=== PATIENT | female | born 1940 | race Caucasian/White ===

== ENCOUNTER → 2016-07-23 09:14 | Outpatient (CLI) | payer MEDICARE, BC ==
[2015-07-26 09:23] VITALS: BMI 27.4
[~2016-07-23 09:14] MED LIST: BAYER CHEWABLE81 MG PO; LEVOXYL75 MCG PO; PAXIL10 MG PO; PLAVIX75 MG PO; PROTONIX40 MG PO; VITAMIN D31000 UNIT PO
== END | disposition home or self-care (01) ==
LOC: D.MRI 07-22 10:00
DX: M25.571 Pain in right ankle and joints of right foot (principal); M79.671 Pain in right foot; W19.XXXA Unspecified fall, initial encounter

== ENCOUNTER 2017-03-19 05:20 | Inpatient (IN) | payer MEDICARE, BC ==
[2017-03-19 06:02] LABS: BASOPHILS 0.2 % (0-2); EOSINOPHILS 0.7 % (0-7); IMMATURE GRANULOCYTES 0.2 % (0-5); LYMPHOCYTES 6.6 % (15-50); MCH 31.8 pg (26.0-34.0); MCHC 32.4 g/dL (31.0-37.0); MCV 98.1 fL (80.0-100.0); MEAN PLATELET VOLUME 9.2 fL (7.4-10.4); MONOCYTES 9.7 % (2-11); NEUTROPHILS 82.6 % (40-80); PLATELET COUNT 181 10x3/uL (130-400); RBC 3.77 10x6/uL (4.00-5.40); RDW 14.2 % (11.5-14.5); WBC 11.2 10x3/uL (4.8-10.8)
[2017-03-19 06:14] LABS: ALBUMIN 3.6 g/dL (3.4-5.0); ALKALINE PHOSPHATASE 83 U/L (46-116); ALT (SGPT) 17 U/L (10-68); BILIRUBIN - TOTAL 0.42 mg/dL (0.2-1.3); CALC OSMOLALITY 282 mosm/kg (275-300); CALCIUM 8.5 mg/dL (8.5-10.1); CARBON DIOXIDE 24.7 mmol/L (21.0-32.0); CHLORIDE - SERUM 106 mmol/L (98-107); GLUCOSE 105 mg/dL (74-106); POTASSIUM - SERUM 3.7 mmol/L (3.5-5.1); PROTEIN - SERUM 6.9 g/dL (6.4-8.2); SODIUM 142 mmol/L (136-145); UREA NITROGEN 13 mg/dL (7-18); eGFR NON AFRICAN AMERICAN 57 mL/min (90-120)
[2017-03-19 06:26] LABS: CHOL - HDL RATIO 4.5 ratio (2.3-4.1); CHOLESTEROL, TOTAL 197 mg/dL (0-200); CKMB 0.3 U/L (0.0-3.6); CREATINE KINASE 73 UL (21-215); HDL CHOLESTEROL 44 mg/dL (32-96); LDL CHOLESTEROL 134 mg/dL (0-100); MAGNESIUM - SERUM 2.1 mg/dL (1.8-2.4); TRIGLYCERIDE 97 mg/dL (30-200)
[2017-03-19 06:29] LABS: TROPONIN-I < 0.017 ng/mL (0.000-0.060)
--- NOTE | 2017-03-19 08:21 | NUR ---
TRANSFER FROM ER. FAMILY AT BS. CORRINAINTED TO ROOM. CALL LIGHT IN REACH. WILL CONT. PLAN OF CARE.
[2017-03-19] MEDS ORDERED: PRESERVISION AR1 CAP PO (09:15)
[2017-03-19 09:21] VITALS: BP 118/56; BMI 28.2
[2017-03-19 12:00] VITALS: BP 98/53
[2017-03-19 12:16] VITALS: BMI 28.2
[2017-03-19 13:32] LABS: CKMB 0.1 U/L (0.0-3.6); CREATINE KINASE 72 UL (21-215)
[2017-03-19 13:34] LABS: TROPONIN-I < 0.017 ng/mL (0.000-0.060)
[2017-03-19 17:54] VITALS: BP 99/44
--- NOTE | 2017-03-19 19:00 | NUR ---
RECEIVED REPORT AND ASSUMED PT CARE FROM DAY SHIFT NURSE @ THIS TIME.
[2017-03-19 19:22] LABS: CREATINE KINASE 53 UL (21-215)
[2017-03-19 19:23] LABS: TROPONIN-I < 0.017 ng/mL (0.000-0.060)
--- NOTE | 2017-03-19 19:42 | NUR ---
PT C/O NAUSEA. NOTHING ORDERED FOR NAUSEA. CALL TO DR PALACIOS, DR VAUGHAN TRACK ANNOUNCER AND RETURNS CALL. NEW ORDER RECEIVED FOR ZOFRAN 4 MG IV Q4H PRN NAUSEA. PT AND HER DAUGHTER UPDATED ON POC
[2017-03-19 20:00] VITALS: BP 94/62
[2017-03-19 20:52] LABS: APPEARANCE CLEAR (CLEAR); BILIRUBIN NEGATIVE (NEGATIVE); COLOR DK YELLOW (YELLOW); GLUCOSE NEGATIVE (NEGATIVE); KETONE NEGATIVE (NEGATIVE); NITRITE NEGATIVE (NEGATIVE); PROTEIN NEGATIVE (NEGATIVE); SPECIFIC GRAVITY 1.015 (1.005-1.020); UROBILINOGEN NORMAL (NORMAL)
[2017-03-19 20:53] LABS: WHITE CELLS - URINE 25-50 /hpf (0-5)
[2017-03-19 20:54] LABS: BACTERIA FEW /hpf (NONE SEEN); EPITHELIAL CELLS 0-5 /hpf (0-5); RED CELLS - URINE RARE /hpf (0-5)
--- NOTE | 2017-03-19 22:40 | NUR ---
PT RESTING WELL WITHOUT C/O OR DISTRESS NOTED. NO NEEDS VOICED. CALL LIGHT WITHIN REACH. WILL CONT TO MONITOR.
--- NOTE | 2017-03-19 23:40 | NUR ---
PT HAS APPROX 30 CC GREEN EMESIS OUT. STATES STILL FEELING NAUSEATED. ZOFRAN 4 MG IV GIVEN @ THIS TIME. WILL CONT TO MONITOR.
[2017-03-20 00:30] LABS: CREATINE KINASE 53 UL (21-215); TROPONIN-I < 0.017 ng/mL (0.000-0.060)
--- NOTE | 2017-03-20 02:10 | NUR ---
DENIES ANY FURTHER C/O NAUSEA. EYES CLOSED AND RESP EVEN UNLABORED. DAUGHTER AT THE BEDSIDE. WILL CONT TO MONITOR.
[2017-03-20 04:00] VITALS: BP 124/66
[2017-03-20 05:30] LABS: BASOPHILS 0.1 % (0-2); EOSINOPHILS 0.1 % (0-7); HEMATOCRIT 36.1 % (36.0-48.0); HEMOGLOBIN 11.9 g/dL (12-16); IMMATURE GRANULOCYTES 0.6 % (0-5); MCH 32.5 pg (26.0-34.0); MCV 98.6 fL (80.0-100.0); MEAN PLATELET VOLUME 10.3 fL (7.4-10.4); MONOCYTES 7.8 % (2-11); NEUTROPHILS 82.4 % (40-80); PLATELET COUNT 187 10x3/uL (130-400); RBC 3.66 10x6/uL (4.00-5.40); RDW 14.3 % (11.5-14.5); WBC 13.7 10x3/uL (4.8-10.8)
[2017-03-20 06:41] LABS: ANION GAP 11.3 mmol/L (8-16); CALCIUM 8.5 mg/dL (8.5-10.1); CARBON DIOXIDE 26.7 mmol/L (21.0-32.0); CREATININE - SERUM 1.1 mg/dL (0.6-1.3)
--- NOTE | 2017-03-20 07:15 | NUR ---
RECEIVED PT IN BED AAOX4 RESP UNLABORED DENIES ANY NEEDS OR DISCOMFORT
[2017-03-20 08:10] VITALS: BP 103/45
[2017-03-20 12:32] VITALS: BP 102/49
[2017-03-20 15:39] VITALS: BP 97/47
--- NOTE | 2017-03-20 19:55 | NUR ---
INITAIL ROUNDS COMPETEDA T 0 HRS. PT DENIED ANY DISCOOFRT. ASSESSMENT COMPLETED AT 5 HRS. SR PER CM HR 71. IV TO LAC SL. LUNGS CTA, PT DENIED ANY DISCOMFORT. FAMILY AT BEDSIDE. WILL CONTINUE TO MONITOR.
[2017-03-20 20:00] VITALS: BP 110/58
[2017-03-20 20:32] VITALS: BP 101/55
--- NOTE | 2017-03-20 23:05 | NUR ---
PT RESTING WITH EYES CLOSED. RESP EVEN AND REGULAR. SR UP X2, CALL LIGHT WITHIN REACH.
--- NOTE | 2017-03-21 00:50 | NUR ---
PT AWAKE; DENIES ANY DISCOMFORT. WILL CONTINUE TO MONITOR.
[2017-03-21 01:18] VITALS: BP 102/48
--- NOTE | 2017-03-21 02:17 | NUR ---
PT RESTING WITH EYES CLOSED. RESP EVEN AND AND REGULAR. SR UP X2, CALL LIGHT WITHIN REACH.
--- NOTE | 2017-03-21 04:22 | NUR ---
PT AWAKE; DENIES ANY DISCOMFORT. WILL CONTINUE TO MONITOR.
[2017-03-21 05:55] VITALS: BP 102/54
--- NOTE | 2017-03-21 06:17 | NUR ---
VSS THROUGHOUT NIGHT. SR PER CM. PT DENIED ANY DISCOMFORT. NEEDS MET; WILL CONTINUE TO MONITOR.
[2017-03-21 08:00] VITALS: BP 102/52
--- NOTE | 2017-03-21 09:33 | NUR ---
MORNING MED GIVEN. PATIENT WITH C/O 7-8 OUT 10 CRAMPING ABD PAIN. LAST BM THE DAY BEFORE ADMIT ON 03/18. PT DENIES NAUSEA. ALSO WITH C/O BACK PAIN 11/04 WELL. ADVISED PT AGAINST TAKING A NARCOTIC IF SHE IS CONSTIPATED UNLESS THE PAIN IS SEVERE, PT AGREES. WILL DISCUSS WITH PT'S PRIMARY NURSE TO OBTAIN ORDER FOR BOWEL MEDS AND PLAIN TYLENOL. WILL CONT TO MONITOR.
[2017-03-21 12:00] VITALS: BP 116/56
[2017-03-21 16:00] VITALS: BP 117/50
--- NOTE | 2017-03-21 17:30 | NUR ---
IV SITE TO LAC LEAKING DCD WITH IV CATHETER INTACT SITE NOTED WITHOUT REDNESS OR EDEMA RESITED SALINE LOCK TO LFA WITH 22 GA IV CATH X 1 STICK USING ASEPTIC TECHNIQUE
--- NOTE | 2017-03-21 19:27 | NUR ---
INITIAL ROUNDS COMPETED. PT DENIES ANY DISCOMFORT. WILL CONTINUE TOMONITOR.
[2017-03-21 20:00] VITALS: BP 112/47
--- NOTE | 2017-03-21 22:20 | NUR ---
PRUNE JUICE COCKTAIL GIVEN FOR C/O CONSTIPATION. SHAYNE CONTINUE TO MONITOR.
--- NOTE | 2017-03-21 23:56 | NUR ---
PT RESTING WITH EYES CLOSED. RESP EVEN AND REGULAR. SR UP X2,CALL LIGHT WITHIN REACH.
--- NOTE | 2017-03-22 02:00 | NUR ---
PT RESTING WITH EYES CLOSED. RESP EVEN AND REGULAR. SR UP X2, CALL LIGHT WITHIN REACH.
[2017-03-22 04:00] VITALS: BP 99/44
--- NOTE | 2017-03-22 04:41 | NUR ---
PT RESTING WITH EYES CLOSED. RESP EVEN AND REGULAR. SR UP X2, CALL LIGHT WITHIN REACH.
--- NOTE | 2017-03-22 06:29 | NUR ---
VSS THROUGHOUT NIGHT. SR PER CM. PT STATED PRUNE JUICE COCKTAIL GACE HER AN UPSET STOMACH. WILL CONTINUE TO MONITOR.
--- NOTE | 2017-03-22 07:55 | NUR ---
UP IN CHAIR WITH CALL LIGHT IN REACH. WILL MONITOR NEEDS.
[2017-03-22 08:00] VITALS: BP 111/65
--- NOTE | 2017-03-22 08:03 | NUR ---
ASSESSMENT DONE. DENIES NEEDS.
[2017-03-22 12:00] VITALS: BP 113/61
[2017-03-22 16:00] VITALS: BP 116/65
--- NOTE | 2017-03-22 16:54 | NUR ---
WITHOUT CHANGES OR DISTRESS NOTED AT THIS TIME. DENIES NEEDS.
[2017-03-22 19:00] VITALS: BP 108/57
--- NOTE | 2017-03-22 21:55 | NUR ---
BEDTIME MEDS GIVEN. RESTING COMFORTABLY. NO COMPLAINTS AT THIS TIME.
[2017-03-23] VITALS: BP 109/55
[2017-03-23 04:32] VITALS: BP 122/61
--- NOTE | 2017-03-23 07:17 | HP ---
PATIENT: BEATRIZ DELGADILLO MEDICAL RECORD: [id number] ACCOUNT: [id number] LOCATION:[address] : 39 ADMISSION DATE: 03/21/17 HISTORY AND PHYSICAL EXAMINATION REASON FOR ADMISSION: Chest pain and shortness of breath. HISTORY OF PRESENT ILLNESS: The patient is a 77-year-old female with history of CAD and PTCA by Dr. Powell 3 years ago. She has undergone some right ankle and foot surgeries, fairly recently has undergone physical therapy. She noticed with walking up hills the last month she was getting some tightness in her chest and it resolved fairly quickly. Over the last couple of weeks, she has noted at rest chest discomfort that would come and go and occasionally radiated into her left arm and wrist. She was awakened at approximately 4:30 a.m. this morning with similar symptoms became more short of breath and just felt nauseated. For that reason, she came to the Emergency Room. She denies any recent dyspepsia, fever, change in stools or blood per rectum. She denies recent fever. Currently a nonsmoker, but had smoked in the past. PAST MEDICAL HISTORY: Osteoarthritis, CAD, diverticulitis, diverticulosis, dyslipidemia, essential hypertension, hypothyroidism, history of lumbar disc disease, IBS, migraine headaches, spinal stenosis, hammer toe, right foot with tendon injury, remote TIA, anxiety, sinus bradycardia, GERD, and hypothyroidism. ALLERGIES: BIAXIN, CIPRO, CODEINE, MOBIC, PRAVASTATIN, SIMVASTATIN, VIMOVO, AND ZETIA. HOME MEDICATIONS: Protonix 40 mg p.o. daily, Xanax 0.25 mg b.i.d. p.r.n. anxiety, Voltaren topical gel right foot t.i.d., Synthroid 75 mcg p.o. q.a.m., vitamin D 10,000 units p.o. weekly, ICaps Plus b.i.d., aspirin 81 mg daily. PAST SURGICAL HISTORY: He has had cataracts both eyes, cholecystectomy, knee arthroscopy, appendectomy, TAHBSO, recent right hammertoe with calcaneal shaving and tendon repair, tonsillectomy and adenoidectomy. FAMILY HISTORY: Parents are . One had cancer of unknown type and one had neurological disorder. Sibling with CAD, diabetes and cancer. Daughter with history of breast cancer. SOCIAL HISTORY: She is . Her several years ago from lung cancer. She is a remote smoker, nondrinker. Daughter is living in [place] and is very involved in her care. REVIEW OF SYSTEMS: GENERAL: She is chronically fatigued, more so recently. No recent fever. HEENT: No recent visual change, sinus congestion, or sore throat. RESPIRATORY: Mild exertional dyspnea associated with chest tightness. She had shortness of breath awakening her this morning at 4:30 a.m. She also had some cough with some clear sputum that had little blood-tinge she states. CARDIAC: She has had exertional tightness in her chest recently that resolved with rest. Occasional radiation to the left arm and elbow and wrist. She was awakened this morning, see HPI. Denies any recent edema or uncontrolled hypertension. GASTROINTESTINAL: No nausea, vomiting, change in stools or blood per rectum. GENITOURINARY: No incontinence. HISTORY AND PHYSICAL [id number] BEATRIZ DELGADILLO GYNECOLOGIC: No vaginal bleeding. ENDOCRINE: Denies polyuria, polydipsia, heat or cold intolerance. NEUROLOGIC: Remote history of TIA. No recent memory loss, motor or sensory deficits. MUSCULOSKELETAL: Has trouble with pain in her right ankle and her recovery from her surgery, morning stiffness. PSYCHIATRIC: Denies depressed mood. INTEGUMENT: No rash or itching. PHYSICAL EXAMINATION: GENERAL: The patient is currently alert and oriented and pain-free in the ED. VITAL SIGNS: Temperature is 97.9 Fahrenheit orally, pulse 85 and regular, respirations were 18 and unlabored, blood pressure 135/64, sats 96% on room air. HEENT: Normocephalic. Eyes show clear sclera with cataract lens implants both eyes. NECK: No bruits appreciated. No JVD. CHEST: Fine crackles in bilateral bases. No wheezes. HEART: Regular rate and rhythm without murmur. BREASTS: Symmetrical. ABDOMEN: Soft, nontender, mildly obese. PELVIC: Deferred. EXTREMITIES: She has postoperative incision in the right medial lower tibia from tendon transposition. Her right ankle shows limited flexion and extension. She has no peripheral edema. SKIN: Unremarkable. NEUROLOGICAL: Oriented to person, place, and time. Cranial nerves grossly intact. Gait was not tested. LABORATORY DATA: EKG shows right bundle branch block which is old. White count is 11,000, H&H of 12 and 37.0, with a left shift with neutrophils of 82.6. Sodium 142, potassium 3.7, BUN 13, creatinine 1.0, glucose 105. Liver functions are normal. Cardiac enzymes initially are negative. Cholesterol is 197 with an LDL of 134, HDL of 44. Chest x-ray shows mild interstitial edema. ASSESSMENT: 1. Symptoms compatible with exertional and rest angina. 2. Mild pulmonary edema. 3. History of known coronary artery disease, single vessel. 4. Hypertension. 5. Hyperlipidemia. 6. Hypothyroidism. 7. Osteoarthritis. 8. Gastroesophageal reflux disease. PLAN: The patient will be admitted. Cardiology evaluation, serial cardiac enzymes, Lasix for IV diuresis. Further workup pending clinical course. TRANSINT:[id number] Voice Confirmation ID: [id number] DOCUMENT ID: [id number] HISTORY AND PHYSICAL [id number] BEATRIZ DELGADILLO TIMOTHY MD at 0717 CC: [id number] DICTATION DATE: 03/19/17727 HEAD NURSE: 03/19/17912 ADM IN [id number] [place] [address]
[2017-03-23 08:00] VITALS: BP 126/47
--- NOTE | 2017-03-23 08:03 | NUR ---
ASSESSMENT DONE. DENIES NEEDS.
--- NOTE | 2017-03-23 09:56 | NUR ---
UP TO CHAIR. RESP UL ON . CALL LIGHT REACH. WILL CONT. PLAN OF CARE.
[2017-03-23 14:47] LABS: BASOPHILS 0.6 % (0-2); EOSINOPHILS 4.5 % (0-7); HEMATOCRIT 36.9 % (36.0-48.0); HEMOGLOBIN 11.8 g/dL (12-16); IMMATURE GRANULOCYTES 0.5 % (0-5); LYMPHOCYTES 28.5 % (15-50); MCH 32.1 pg (26.0-34.0); MCV 100.3 fL (80.0-100.0); MEAN PLATELET VOLUME 9.8 fL (7.4-10.4); MONOCYTES 11.6 % (2-11); NEUTROPHILS 54.3 % (40-80); PLATELET COUNT 212 10x3/uL (130-400); RBC 3.68 10x6/uL (4.00-5.40); RDW 14.2 % (11.5-14.5); WBC 6.3 10x3/uL (4.8-10.8)
[2017-03-23 15:06] LABS: ANION GAP 8.8 mmol/L (8-16); CARBON DIOXIDE 30.7 mmol/L (21.0-32.0); POTASSIUM - SERUM 4.5 mmol/L (3.5-5.1)
[2017-03-23 16:00] VITALS: BP 104/78
--- NOTE | 2017-03-23 18:06 | NUR ---
WITHOUT CHANGES OR DISTRESS NOTED AT THIS TIME. DENIES NEEDS.
[2017-03-23 21:26] VITALS: BP 133/73
--- NOTE | 2017-03-23 21:53 | NUR ---
PT AWAKE, ALERT, ORIENTED, STATES SHE IS HAVING SOME URINARY DISCOMFORT AND DENIES HAVING ANY HX OF UTI'S. I EXPLAINED THE NEWLY ORDERED ROCEPHIN SHOULD HELP IF THERE IS A UTI DEVELOPING. RED POPSICLE GIVEN FOR HS SNACK, NO OTHER NEEDS. CONTINUE TO MONITOR CLOSELY. BED LOW, CALL LIGHT IN REACH, SIDE RAILS X 2, HOB 20 DEGREES.
--- NOTE | 2017-03-24 00:44 | NUR ---
PT RESTING COMFORTABLY, DENIES ANY NEEDS. CONTINUE TO MONITOR CLOSELY. BED LOW, CALL LIGHT IN REACH, SIDE RAILS X 2, HOB 20 DEGREES.
--- NOTE | 2017-03-24 08:10 | NUR ---
ASSESSMENBT DONE. DENIES NEEDS.
[2017-03-24 08:16] VITALS: BP 140/73
--- NOTE | 2017-03-24 09:29 | NUR ---
RESP UL ON . NO NEEDS VOICED. CALL LIGHT IN REACH. WILL CONT. PLAN OF CARE.
[2017-03-24 11:58] VITALS: BP 117/72
[2017-03-24 17:37] VITALS: BP 141/75
--- NOTE | 2017-03-24 17:46 | NUR ---
WITHOUT CHANGES OR DISTRESS NOTED AT THIS TIME.
--- NOTE | 2017-03-24 19:45 | NUR ---
RESUMED CARE OF PT, LYING IN BED RESPIRATIONS EVEN AND UNLABORED ON 2LPM VIA NC. DAUGHTER AT BEDSIDE, PLAN OF CARE DISCUSSED. 76 SR ON TELEMETRY. RIGHT AND LEFT FOREARM SALINE LOCKED. NO NEEDS AT THIS TIME. WILL CONTINUE TO MONITOR. SEE NURSE ASSESSMENT.
[2017-03-24 20:48] VITALS: BP 143/73
[2017-03-25] VITALS: BP 109/59
--- NOTE | 2017-03-25 00:54 | NUR ---
MANAGER ATHLETICS AT BEDSIDE TO OBTAIN VITALS, CALL LIGHT IN REACH. WILL CONTINUE WITH PLAN OF CARE.
--- NOTE | 2017-03-25 06:54 | NUR ---
NO CHANGES FROM PREVIOUS ASSESSMENT, CALL LIGHT IN REACH. WILL CONTINUE TO MONITOR.
--- NOTE | 2017-03-25 07:50 | NUR ---
RECEIVED PT IN CHAIR AAOX4 RESP UNLABORED DENIES ANY NEEDS OR DISCOMFORT NAD NOTED
[2017-03-25 08:06] VITALS: BP 118/58
[2017-03-25 12:23] VITALS: BP 111/52
[2017-03-25 20:00] VITALS: BP 118/61
[2017-03-26] VITALS: BP 106/58
[2017-03-26 04:00] VITALS: BP 98/56
[2017-03-26 07:38] VITALS: BP 105/62
--- NOTE | 2017-03-26 11:09 | NUR ---
Patient Name: BEATRIZ DELGADILLO Admission Status: ER Accout number: [id number] Admission Date: 03-21-2017 : 1940 Admission Diagnosis:CHEST PAIN, UNSPECIFIED Attending: BRENDON PALACIOS Current LOS: 5 Anticipated DC Date: 04-02-2017 Planned Disposition: Home Primary Insurance: MEDICARE A & B Discharge Planning Comments: CM MET WITH PATIENT TO DISCUSS DISCHARGE NEEDS. PATIENT WILL RETURN HOME TO HER HOUSE AT [address] [place] [address]. (P.O. BOX LISTED ON FACESHEET). HER DAUGHTER AND GRANDSON HELP HER OUT AND BRING HER MEALS. SHE ASKED ABOUT [employer]. EXPAINED I COULD CHECK ON IT, BUT DID NOT KNOW IF THEY SERVICED THAT AREA. I WOULD LET HER KNOW. SHE SAID SHE IS INDEPENDENT IN HER CARE. STATED THAT WHEN SHE HAD THE BOOT ON HER FOOT, SHE WAS SLOWER, BUT GOT IT DONE. SHE HAS SOME EQUIPMENT AT HOME, BUT SAID SHE DOES NOT USE IT. SHE STATED HER DAUGHTER WOULD BE HER TO PICK HER UP SHORTLY. DENIES NEEDS FOR ASSISTANCE OUTSIDE THE MEALS. WILL CONTINUE TO CHECK ON HER AND BE AVAILABLE UNTIL TIME OF DISCHARGE. Clothes Marker: Lauren Aranda Appended by Lauren Aranda on 03/26/2017 15:24 CDT: SPOKE WITH HEXIO AT [employer] ([phone]) SHE STATED THEY DO NOT SERVE THE [place] AREA, BUT STATED THAT [employer] DID. SHE GAVE ME THE NUMBER [phone]. A CALL WAS PLACED HERE, THE CURRICULUM COUNSELOR STATED THEY LEFT AT 1200 ON [place]IDAYS AND RECOMMENDED THEY BE CALLED BACK ON WEDNESDAY. THIS WAS EXPLAINED TO THE PATIENT AND THE INFORMATION WAS GIVEN TO HER. SHE SAID THAT SHE WOULD CALL ON WEDNESDAY. Is the patient Alert and Oriented? Yes * How many steps to enter\exit or inside your home? 2, RAILS * PCP DR BRENDON PALACIOS * Pharmacy [facility] * Preadmission Environment Home with Family * ADLs Independent * Equipment Cane Shower Chair Walker * List name and contact numbers for known caregivers / representatives who currently or will assist patient after discharge: SOPHIE JACK, DAUGHTER [phone] * Community resources currently utilized None * Additional services required to return to the preadmission environment? No * Can the patient safely return to the preadmission environment? Yes * Has this patient been hospitalized within the prior 30 days at any hospital? No
--- NOTE | 2017-03-26 11:14 | NUR ---
Nutrition Monitoring and Eval: Pt is eating 88% meal avg on an AHA diet. +BM 03/26/17. Labs and meds reviewed. Pt continues at low nutritional risk. RD following.
[2017-03-26 11:51] VITALS: BP 114/64
[2017-03-26] MEDS ORDERED: OMNICEF300 MG PO (13:05)
[2017-03-26] MEDS ORDERED: Levaquin PO (13:05)
[2017-03-26] MEDS ORDERED: NYSTATIN ORAL SU5 ML PO (13:05)
[2017-03-26] MEDS ORDERED: VOLTAREN100 GM TOPICAL (13:06)
[2017-03-26] MEDS ORDERED: MUCINEX DM ER1 EAC1 PO (13:06)
[2017-03-26] MEDS ORDERED: FLUTICASONE PRO16 GM NASAL (13:07)
[2017-03-26] MEDS ORDERED: FLORAJEN3 CAPS460 MG PO (13:07)
--- NOTE | 2017-03-26 13:42 | NUR ---
AWAITING DISCHARGE. NO CURRENT NEEDS.
--- NOTE | 2017-03-26 14:44 | NUR ---
IV DC'D TIMES 2. CATH TIPS FULLY INTACT. REVIEWED DC INSTRUCTIOS WITH PT AND FAMILY. NO FURTHER NEEDS OR C/O. ALL PERSONAL BELONGINGS WITH FAMILY. PT DC'D HOME.
[2017-03-27 20:07] LABS: ANGIOTENSIN CONVERTING ENZYME 33 U/L (14-82)
[2017-03-29 20:08] LABS: FUNGAL - ASP FLAVUS Negative (Neg:<1:1); FUNGAL - ASP NIGER Negative (Neg:<1:1); FUNGAL - ASPER FUMIGATUS Negative (Neg:<1:1)
--- NOTE | 2017-04-08 12:47 | EC ---
PATIENT:BEATRIZ DELGADILLO DATE OF SERVICE: 03/21/17 SEX: F MEDICAL RECORD: [id number] DATE OF : [birth year] LOCATION:D.M2 D.212 AGE OF PATIENT: 77 ADMISSION DATE: 03/21/17 REFERRING PHYSICIAN: INTERPRETING PHYSICIAN: MELYSSA LOMAX MD ECHOCARDIOGRAM REPORT ECHO CHARGES 4 ECHO COMPLETE CLINICAL DIAGNOSIS: CHF ECHOCARDIOGRAPHIC MEASUREMENTS (adult normal given) AC root (d.<3.7cm) 3.3 cm LV Septum d (<1.2 cm> 1.5 cm Valve Excursion 2.1 cm LV Septum (systole) 2.1 cm Left Atria (s.<4.0cm> 3.0 cm LVPW d(<1.2cm) 1.3 cm RV (d.<2.3cm) 2.8 cm LVPW (sytole) 1.9 cm LV diastole(<5.6CM) 4.5 cm MV E-F(>70mm/sec) cm LV systole 2.5 cm LVOT Diameter 1.9 cm MV exc.(>10mm) cm Est.ejection fraction (50-75%) % Pericardial Effusion N DOPPLER: LVIT cm/sec A 81.0 cm/sec E 54.0 cm/sec LA cm/sec RVSP 37.0 mmHg LVOT 120 cm/sec AOP1/2T m/s Asc. Ao 138 cm/sec RVOT 64.0 cm/sec RA cm/sec PA 95.0 cm/sec AV Gradient Peak 7.7 mmHg AV Mean 3.5 mmHg AV Area 2.0 cm MV Gradient Peak 3.7 mmHg MV Mean 1.1 mmHg MV Area cm COMMENTS: Inflated Ball Molder: Vivian MONTGOMERYOE Supervisor Statement Clerks: 4 Dr. Lomax TAPE# PACS DATE OF SERVICE: 03/19/2017 PROCEDURE: Transthoracic echocardiogram. FINDINGS: 1. Left ventricle has [id number] concentric left ventricular hypertrophy with an ejection fraction of 60% and flow characteristics consistent with diastolic dysfunction. 2. The mitral valve appears to be structurally normal with mild mitral regurgitation. ECHOCARDIOGRAM REPORT [id number] BEATRIZ DELGADILLO 3. The left atrium appears to be normal size, normal function. 4. The right ventricle has mild right ventricular enlargement with normal function. 5. The tricuspid valve has mild tricuspid regurgitation with estimated PA pressures of 30-35 mmHg. 6. The pulmonic valve is not well visualized, but grossly normal. 7. The pericardium is normal. CONCLUSIONS: The patient has evidence of hypertensive heart disease with preserved function with evidence of diastolic abnormalities. TRANSINT:[id number] Voice Confirmation ID: [id number] DOCUMENT ID: [id number] 04/02/2017 Edited to correct date of service, dmm. MELYSSA LOMAX MD at 1247 CC: [id number] DICTATION DATE: 03/22/17 0850 NATIONAL SALES CONSULTANT: 03/22/17 1010 DIS IN 03/26/[id number] [place] [address]
== END 2017-03-26 15:11 | disposition home or self-care (01) | DRG 194 ==
LOC: D.ER 05:20 → OBSVTIME 06:32 → D.M2 06:32
PROVIDERS: Emergency Medicine; Internal Medicine Cardiovascular Disease; Internal Medicine Pulmonary Disease; ADMIT Family Medicine
DX: J18.9 Pneumonia, unspecified organism (principal); I50.30 Unspecified diastolic (congestive) heart failure; J98.11 Atelectasis; I11.0 Hypertensive heart disease with heart failure; I25.10 Atherosclerotic heart disease of native coronary artery without angina pectoris; K58.9 Irritable bowel syndrome, unspecified; E03.9 Hypothyroidism, unspecified; E78.5 Hyperlipidemia, unspecified; K21.9 Gastro-esophageal reflux disease without esophagitis; F41.9 Anxiety disorder, unspecified; J30.9 Allergic rhinitis, unspecified; I27.2 Other secondary pulmonary hypertension; I08.1 Rheumatic disorders of both mitral and tricuspid valves; J84.10 Pulmonary fibrosis, unspecified; K57.90 Diverticulosis of intestine, part unspecified, without perforation or abscess without bleeding; Z95.5 Presence of coronary angioplasty implant and graft; Z86.73 Personal history of transient ischemic attack (TIA), and cerebral infarction without residual deficits; Z87.891 Personal history of nicotine dependence

== ENCOUNTER 2017-05-17 07:49 | Outpatient (CLI) | payer MEDICARE, BC ==
[~2017-05-17] VITALS: Ht 170.2 cm; Wt 82.3 kg
--- NOTE | ~2017-05-17 | HEMODYNAMI ---
PATIENT:BEATRIZ DELGADILLO MEDICAL RECORD: [id number] : 38 LOCATION:[facility] ADMISSION DATE: 05/17/17 Generatedon:05/17/201711:05 Patient name: BEATRIZ DELGADILLO Patient #: [id number] SSN: : 1940 Date of study: 05/17/2017 Page: Of Hemodynamic Procedure Report Patient Data Patient Demographics Procedure consent was obtained First Name: BEATRIZ Gender: Female Last Name: LEONA : 1940 Middle Initial: O Age: 77 year(s) Patient #: [id number] Race: Unknown Additional ID: [id number] Contact details Address: [place] [address] State: [place] City: [place] Zip code: [address] Past Medical History Allergies Allergen Reaction Date Comments Reported Other allergy 07/26/2015 demerol, morphine, mobic, latex, steroids,cipro, celebrex, clarithromye, biatin, zpak,erythryomycin, triam/htc37, vimovo Other allergy 05/17/2017 ERYTHROMYCIN, VIMOCO, DERMEROL, MORPHINE, TRIAMTERENE, MOBIC, LATEX, STEROIDS Admission Admission Data Admission Date: 05/17/2017 Admission Time: 7:49 Height (in.): 5.7 BSA: 0.32 (m2) Height (cm.): 14.48 BMI: 3916.76 (kg/m2) Weight (lbs.): 181 Weight (kg.): 82.1 Procedure Procedure Types Cath Procedure Diagnostic Procedure LHC LHC w/Coronaries Miscellaneous Procedures Moderate Sedation up to 15 minutes Procedure Description Procedure Date Procedure Date: 05/17/2017 Procedure Start Time: 10:55 Procedure End Time: 11:05 Procedure Staff Name Function Jeancarlos Powell MD Performing Physician Clarita Bautista RT Monitor Jacob Garcia RN Nurse Analy Goldman RT Scrub Del Odell RT Monitor Procedure Data Cath Procedure Fluoroscopy Diagnostic fluoroscopy Total fluoroscopy Time: 1.5 time: 1.5 min min Diagnostic fluoroscopy Total fluoroscopy dose: 381 dose: 381 mGy mGy Contrast Material Contrast Material Type Amount (ml) Isovue 300 44 Entry Location Entry Primary Successful Side Size Upsize Upsize Entry Closure Manzano ccessful Closure Location (Fr) 1 (Fr) 2 (Fr) Remarks Device Remarks Radial Right 6 Fr Mechanical TR BAND artery Short Compression Estimated blood loss: 5 ml Diagnostic catheters Device Type Used For End Catheter Placement Diagnostic Terumo 5Fr Procedure [place] 110cm catheter Procedure Complications No complications Procedure Medications Medication Administration Route Dosage 0.9% NaCl I.V. bolus 100 ml Oxygen NC 2 l/min Heparin Flush Bag added to field 2 bags (1000units/500ml NS) Lidocaine 2% added to field 20 Radial Cocktail 1 syringe (Verapomil 2mg/Nitro 400mcg/Heparin 1500units) Versed I.V. 0.5 mg Fentanyl I.V. 25 mcg Versed I.V. 0.5 mg Radial Cocktail I.A. 1 syringe (Verapomil 2mg/Nitro 400mcg/Heparin 1500units) Hemodynamics Rest BSA: 0.32 (m2) O2 Consumption: Estimated: 28.08 (ml/min) O2 Consumption indexed: Estimated:87.75 (ml/min/m) Heart Rate: 63 (bpm) Snapshots Pre Cath Intra NCS Post Cath Vital Signs Time Heart Resp SPO2 etCO2 NIBP (mmHg) Rhythm Pain Sedation Rate (ipm) (%) (mmHg) Status Level (bpm) 10:42:58 99 26 95 0 134/64(78) NSR 0 (11) 10(A) , No pain 10:47:41 67 16 100 28.6 149/75(114) NSR 0 (11) 10(A) , No pain 10:52:24 69 20 99 14.3 117/70(99) NSR 0 (11) 10(A) , No pain 10:57:02 77 14 98 20.3 122/67(90) NSR 0 (11) 10(A) , No pain 11:01:41 83 14 93 21.8 109/65(82) NSR 0 (11) 10(A) , No pain Medications Time Medication Route Dose Verified Delivered Reason Notes Effectiveness by by 10:42:50 0.9% NaCl I.V. 100 ml Jacob Jacob Per bolus Radha Garcia physician RN RN 10:43:11 Oxygen NC 2 l/min Jacob Jacob Per Radha Gracia physician RN RN 10:43:26 Heparin Flush added 2 bags Jacob Jacob used for Bag to Radha Garcia procedure (1000units/500ml field RN RN NS) 10:43:39 Lidocaine 2% added 20ml Jacob Jacob for local to vial Radha Garcia anesthetic field RN RN 10:43:51 Radial Cocktail 1 Jacob Jacob for (Verapomil syringe Radha Garcia vasodilation 2mg/Nitro RN RN 400mcg/Heparin 1500units) 10:49:22 Versed I.V. 0.5 mg Jacob Jacob for sedation Radha Garcia RN RN 10:49:33 Fentanyl I.V. 25 mcg Jacob Jacob for sedation Radha Garcia RN RN 10:54:42 Versed I.V. 0.5 mg Jacob Jacob for sedation Radha Garcia RN RN 10:57:20 Radial Cocktail I.A. 1 Jacob Jeancarlos for (Verapomil syringe Radha Powell MD vasodilation 2mg/Nitro RN 400mcg/Heparin 1500units) Procedure Log Time Note 10:25:12 Time tracking: Regular hours 10:25:16 Plan of Care:Hemodynamics will remain stable., Cardiac rhythm will remain stable., Comfort level will be maintained., Respiratory function will remain adequate., Patient/ family verbilizes understanding of procedure., Procedure tolerated without complication., Recovers from procedure without complications.. 10:25:24 Del ROSA(R) sent for patient. Start room use. 10:36:57 Patient received from Pre/Post Procedure Room to CCL 1 Alert and oriented. Tansferred to table in Supine position. 10:36:58 Warm blankets applied, and ronda hugger turned on for patient comfort. 10:36:58 Correct patient and procedure confirmed by team. 10:36:59 Signed procedure consent form obtained from patient. 10:37:00 ECG and BP/O2 sat monitors applied to patient. 10:40:28 Full Disclosure recording started 10:42:00 Vital chart was started 10:42:50 0.9% NaCl 100 ml I.V. bolus was administered by Jacob Garcia RN; Per physician; 10:43:11 Oxygen 2 l/min NC was administered by Jacob Garcia RN; Per physician; 10:43:26 Heparin Flush Bag (1000units/500ml NS) 2 bags added to field was administered by Jacob Garcia RN; used for procedure; 10:43:39 Lidocaine 2% 20ml vial added to field was administered by Jacob Garcia RN; for local anesthetic; 10:43:51 Radial Cocktail (Verapomil 2mg/Nitro 400mcg/Heparin 1500units) 1 syringe was administered by Jacob Garcia RN; for vasodilation; 10:46:58 Baseline sample Acquired. 10:47:03 Rhythm: sinus rhythm 10:47:17 H&P Date Dictated: 04/29/2017 Within 30 days and on chart., H&P Addendum completed by physician on day of procedure. (MUST COMPLETE FOR ALL OUTPATIENTS). 10:47:17 Pre-procedure instructions explained to patient. 10:47:18 Pre-op teaching completed and patient verbalized understanding. 10:47:22 Family in patients room. 10:47:24 Patient NPO since Midnight. 10:47:29 Is the patient allergic to Iodine/contrast media? No. 10:47:33 Is patient on blood thinner?Yes 10:47:36 ACC The patient was administered the following blood thiners within the last 24 hours: ACCPlavix 10:47:38 Patient diabetic? No. 10:47:43 Patient not . Patient is over age 55. 10:47:46 Previous problem with sedation/anesthesia? No ? 10:47:47 Snore? Yes 10:47:49 Sleep apnea? No 10:47:50 Deviated septum? No 10:47:52 Opens mouth fully? Yes 10:47:54 Sticks out tongue? Yes 10:48:01 Dentures? Yes OUT 10:48:04 Modified Burak's test Ulnar < 7 seconds 10:48:09 Patient pain scale 0/10 ?. 10:48:14 Pre procedure: right dorsailis pedis pulse 1+ Palpable, but thready & weak; easily obliterated 10:48:22 IV patent on arrival in right antecubital with 0.9% NaCl at O. 10:48:31 Lab results completed and on chart. 10:48:35 Right Radial & Right Groin area was prepped with chlora-prep and draped in sterile fashion 10:48:36 Alarms reviewed by R. N. 10:48:37 Sharps counted by scrub and verified by R.N. 10:48:37 Physician arrived 10:48:40 --------ALL STOP TIME OUT------ 10:48:40 Final Timeout: patient, procedure, and site verified with staff and physician. All members of the team are in agreement. 10:48:43 Right Radial & Right Groin site verified by team. 10:48:47 Physical assessment completed. ASA score P 2 - A patient with mild systemic disease as per Jeancarlos Powell MD. 10:48:50 Sedation plan: IV Moderate Sedation Medication:Versed, Fentanyl 10:49:22 Versed 0.5 mg I.V. was administered by Jacob Garcia RN; for sedation; 10:49:33 Fentanyl 25 mcg I.V. was administered by Jacob Garcia RN; for sedation; 10:50:35 Use device set Radial Dx 10:50:38 Acist Manifold opened to sterile field. 10:50:38 Acist Hand Control opened to sterile field. 10:50:39 Tegaderm 4 x 4 opened to sterile field. 10:50:40 Acist Syringe opened to sterile field. 10:50:40 Medline Cath Pack opened to sterile field. 10:50:41 Bag Decanter opened to sterile field. 10:50:41 Terumo 6Fr Slender Glidesheath opened to sterile field. 10:50:42 St Live 260cm J .035 wire opened to sterile field. 10:50:42 MBrace Wrist Support opened to sterile field. 10:51:59 Patient allergic to Other allergyERYTHROMYCIN, VIMOCO, DERMEROL, MORPHINE, TRIAMTERENE, MOBIC, LATEX, STEROIDS 10:52:08 Patient Height : 5.7 inches 10:52:12 Patient Weight : 181 lbs 10:53:04 Zero performed for pressure channel P1 10:54:04 Procedure started. 10:54:42 Versed 0.5 mg I.V. was administered by Jacob Garcia RN; for sedation; 10:55:01 Local anesthetic to right radial artery with Lidocaine 2% by Jeancarlos Powell MD.INITIAL ACCESS ONLY 10:55:44 A 6 Fr Short sheath was inserted into the Right Radial artery 10:56:32 A Diagnostic Terumo 5Fr [place] 110cm catheter was advanced over the wire and used for Procedure. 10:57:17 Injector settings: Ml/sec: 7, Volume: 15, 10:57:18 LV hemodynamics recorded. 10:57:20 Radial Cocktail (Verapomil 2mg/Nitro 400mcg/Heparin 1500units) 1 syringe I.A. was administered by Jeancarlos Powell MD; for vasodilation; 10:57:24 LV gram done using HE 10:58:00 EF : 50 % 10:58:13 LCA angiography performed. 10:59:24 RCA angiography performed. 10:59:34 Catheter removed. 10:59:45 Terumo TR Band Standard opened to sterile field. 11:00:02 Sheath removed intact; hemostasis achieved with Mechanical Compression to the Right Radial artery. 11:00:08 Procedure ended.(Physican Out) 11:00:45 Fluoroscopy time 01.50 minutes. 11:00:49 Fluoroscopy dose: 381 mGy 11:00:49 Flurop Dose total: 381 11::28 Contrast amount:Isovue 300 44ml. 11:01:29 Sharps counted by scrub and verified by R.N. 11:01:33 TR band inflated with 10cc of air. 11:01:39 Post Procedure Pulses reassessed and unchanged 11::45 Post-procedure physical assessment completed. ASA score P 2 - A patient with mild systemic disease as per Jeancarlos Powell MD. 11::49 Post procedure rhythm: unchanged. 11:01:51 Estimated blood loss: 5 ml 11::53 Post procedure instruction explained to patient.Patient verbalizes understanding. 11:02:07 Procedure type changed to Cath procedure, Diagnostic procedure, LHC, LHC w/Coronaries, Miscellaneous Procedures, Moderate Sedation up to 15 minutes 11:02:43 Procedure and supply charges have been captured, reviewed, submitted and are correct. 11::45 Procedure Complication : No complications 11:04:14 See physician's report for complete and final results. 11:04:24 Report given to Pre/Post Procedure Room. 11:04:28 Patient transfered to Pre/Post Procedure Room with Bed. 11:05:04 Vital chart was stopped 11:05:07 Procedure ended. 11:05:07 Full Disclosure recording stopped 11:05:10 End room use (Document Last) Device Usage Item Name Manufacture Quantity Catalog Hospital Part Current Minimal Lot# / Number Charge Number Stock Stock Serial# Code Acist Acist 1 [id number] [id number] 948232 216091 5 Manifold [employer] Acist Hand Acist 1 07037 381312 132282 334042 5 Control [employer] Inc Tegaderm 4 3M 1 1626W 429960 521636 060927 5 x 4 Acist Acist 1 90069 003308 219578 302370 20 Syringe [employer] Inc Medline Cardinal 1 [id number] 92045 390832 5 Cath Pack Health Bag Microtek 1 2002S 062518 53765 567326 5 Decanter [employer]. Terumo 6Fr Terumo 1 [id number] 980889 406187 369211 [address] Live St Live 1 202472 019054 847229 292510 30 260cm J .035 wire MBrace Advanced 1 [id number] 838710 06192 984345 5 Wrist Vascular Support Dynamics Diagnostic Terumo 1 40-1974 427299 708342 317748 5 Terumo 5Fr [place] 110cm catheter Terumo TR Terumo 1 [id number] 986110 347332 133857 40 Band Standard Signature Audit [place] Stage Time Signature Unsigned Intra-Procedure 05/17/2017 Clarita Bautista 11:05:29 AM RT(R) Signatures Monitor : Clarita Bautista Signature : RT Date : Time : Monitor : Del Odell RT Signature : Date : Time : [place] [id number] [place] [address]
[~2017-05-17 07:49] MED LIST changes: +FLORAJEN3 CAPS460 MG PO; +FLUTICASONE PRO16 GM NASAL; +Levaquin PO; +MUCINEX DM ER1 EAC1 PO; +NYSTATIN ORAL SU5 ML PO; +OMNICEF300 MG PO; +PRESERVISION AR1 CAP PO; +VOLTAREN100 GM TOPICAL
[2017-05-17 08:37] LABS: BASOPHILS 0.5 % (0-2); EOSINOPHILS 2.7 % (0-7); HEMATOCRIT 38.9 % (36.0-48.0); HEMOGLOBIN 12.7 g/dL (12-16); IMMATURE GRANULOCYTES 0.2 % (0-5); LYMPHOCYTES 20.1 % (15-50); MCH 32.6 pg (26.0-34.0); MCHC 32.6 g/dL (31.0-37.0); MCV 99.7 fL (80.0-100.0); MEAN PLATELET VOLUME 9.5 fL (7.4-10.4); MONOCYTES 13.3 % (2-11); NEUTROPHILS 63.2 % (40-80); PLATELET COUNT 181 10x3/uL (130-400); RDW 13.8 % (11.5-14.5); WBC 6.4 10x3/uL (4.8-10.8)
[2017-05-17 08:52] VITALS: BP 159/75; Ht 170.2 cm; Wt 82.3 kg
[2017-05-17 08:53] LABS: ANION GAP 13.9 mmol/L (8-16); CALCIUM 8.7 mg/dL (8.5-10.1); CARBON DIOXIDE 25.2 mmol/L (21.0-32.0); CREATININE - SERUM 1.1 mg/dL (0.6-1.3); POTASSIUM - SERUM 4.1 mmol/L (3.5-5.1)
[2017-05-17] MEDS ORDERED: PLAVIX75 MG PO (08:58)
--- NOTE | 2017-05-17 11:22 | NUR ---
1110 RECEIVED PT FROM EMBALMER/FUNERAL DIRECTOR. PT SLEEPING, AWAKENS EASILY TO VERBAL STIMULI. DENIES ANY C/O CHEST PAIN OR NAUSEA. NSR WITH RATE OF 71, BP IS 120/67. RR IS EVEN AND UNLABORED, ON O2 AT 2 LPM VIA NC WHILE SLEEPY. TR BAND CDI TO RIGHT WRIST, NO BLEEDING OR HEMATOMA NOTED. FINGERS WARM, CAP REFILL IS BRISK. WRIST IMMOBILIZER IN PLACE. DAUGHTERS AT BEDSIDE, INSTRUCTED PT TO CALL FOR NEEDS. WILL CONTINUE TO MONITOR.
--- NOTE | 2017-05-17 11:35 | NUR ---
1120 PT SLEEPING, AWAKENS EASILY, DENIES ANY C/O. NSR, RATE 80. TR BAND CDI, FINGERS WARM CAP REFILL IS BRISK. DAUGHTERS AT BEDSIDE. CALL LIGHT IN REACH. WILL CONTINUE TO MONITOR.
--- NOTE | 2017-05-17 11:59 | NUR ---
PT DENIES ANY C/O. RR EVEN AND UNLABORED. VSS, NO BLEEDING OR HEMATOMA AT CATH SITE. DAUGHTERS AT BEDSIDE. CALL LIGHT IN REACH.
--- NOTE | 2017-05-17 12:23 | NUR ---
3 CC OF AIR HAS BEEN REMOVED FROM TR BAND WITH NO BLEEDING OR HEMATOMA NOTED. PT DENIES ANY C/O AT THIS TIME. SANDWICH AND PO FLUIDS SERVED. DAUGHTER AT BEDSIDE.
--- NOTE | 2017-05-17 12:42 | NUR ---
3 CC OF AIR REMOVED FROM TR BAND WITH NO BLEEDING OR HEMATOMA NOTED. PT DARVIN SANDWICH WITH NO C/O NAUSEA.
--- NOTE | 2017-05-17 13:19 | NUR ---
1300 2X2 AND TEGADERM CDI TO CATH SITE. IV DC'D WITH CATH INTACT, PT DRESSING FOR DC TO HOME. DC INSTRUCTIONS HAVE BEEN REVIEWED WITH PT AND DAUGHTERS WHO VERBALIZE UNDERSTANDING.
--- NOTE | 2017-05-17 13:20 | NUR ---
PT DRESSED FOR DC. NO BLEEDING OR HEMATOMA NOTED AT CATH SITE. WRIST IMMOBILIZER IN PLACE. PT HAS VOIDED QS. PT ESCORTED TO PRIVATE AUTO VIA WC BY NURSE WITH DAUGHTER DRIVING HER HOME. PT DENIES ANY C/O UPON DC AND HAS ALL BELONGINGS.
--- NOTE | 2017-05-24 09:02 | OP ---
PATIENT NAME: BEATRIZ DELGADILLO MEDICAL RECORD: [id number] :38 LOCATION:[facility] ADMISSION DATE: SURGEON: MARINE PITT MD DATE OF OPERATION: 05/17/2017 PROCEDURES: 1. Left heart catheterization. 2. Selective coronary angiography. 3. Left ventriculogram. INDICATION: Chest pain compatible with angina, coronary artery disease, previous PTCA stent. PROCEDURE IN DETAIL: After informed consent was obtained and after detailed explanation of risks, benefits as well as alternative therapies, the patient elected to proceed with angiogram and heart catheterization. The right radial area was prepped and draped in normal sterile fashion. The right radial artery was cannulated via modified Seldinger technique with placement of 5-Kinyarwanda sheath. All catheters exchanged through this sheath. FINDINGS: The left ventriculogram was performed in standard 30-degree HE view, reveals good cardiac wall motion throughout all segments. Overall ejection fraction estimated at 60%. SELECTIVE CORONARY ANGIOGRAPHY: 1. Left main showed no significant angiographic disease. 2. Left anterior descending has previously placed stent. This is widely patent with no significant restenosis. No disease elsewise throughout the LAD or its branches. 3. Left circumflex has mild irregularities, but no flow-limiting stenosis. 4. Right coronary has moderate irregularities, but no flow-limiting stenosis. OVERALL IMPRESSION: No significant restenosis of the previously placed stent in the LAD. No disease elsewise. Continue medical management of the coronary artery disease and cardiac risk factors. TRANSINT:[id number] Voice Confirmation ID: [id number] DOCUMENT ID: [id number] MARINE PITT MD at 0902 CC: [id number] DICTATION DATE: 05/17/17 1106 AIRFRAME TECHNICIAN: 05/17/17 1343 DEP CLI 05/17/17 [place] [id number]
== END 2017-05-17 13:20 | disposition home or self-care (01) ==
LOC: D.CATH 07:49
PROVIDERS: Internal Medicine Interventional Cardiology
DX: I25.119 Atherosclerotic heart disease of native coronary artery with unspecified angina pectoris (principal); Z95.5 Presence of coronary angioplasty implant and graft; Z01.812 Encounter for preprocedural laboratory examination

== ENCOUNTER → 2019-07-28 10:44 | Outpatient (CLI) | payer MEDICARE, BC ==
[2017-05-17 08:52] VITALS: BMI 28.4
--- NOTE | ~2019-07-28 | EC ---
PATIENT:BEATRIZ DELGADILLO DATE OF SERVICE: 07/28/19 SEX: F MEDICAL RECORD: [id number] DATE OF : 38 LOCATION:[facility] AGE OF PATIENT: 79 ADMISSION DATE: 07/28/19 REFERRING PHYSICIAN: INTERPRETING PHYSICIAN: MARINE POWELL MD ECHOCARDIOGRAM REPORT ECHO CHARGES 4 ECHO COMPLETE Date: 07/28/19 CLINICAL DIAGNOSIS: HTN/FATIGUE/RBBB H/O CAD ECHOCARDIOGRAPHIC MEASUREMENTS (adult normal given) AC root (d.<3.7cm) 3.5 cm LV Septum d (<1.2 cm> 1.4 cm Valve Excursion 2.0 cm LV Septum (systole) 1.7 cm Left Atria (s.<4.0cm> 3.2 cm LVPW d(<1.2cm) 1.2 cm RV (d.<2.3cm) 2.5 cm LVPW (sytole) 2.0 cm LV diastole(<5.6CM) 4.9 cm MV E-F(>70mm/sec) cm LV systole 2.7 cm LVOT Diameter 1.9 cm MV exc.(>10mm) cm Est.ejection fraction (50-75%) % DOPPLER: LVIT cm/sec A 62.0 cm/sec E 39.0 cm/sec LA cm/sec RVSP 29.0 mmHg LVOT 85.0 cm/sec AOP1/2T m/s Asc. Ao 111 cm/sec RVOT 46.0 cm/sec RA cm/sec PA 65.0 cm/sec AV Gradient Peak 4.9 mmHg AV Mean 2.8 mmHg AV Area 2.2 cm MV Gradient Peak 3.2 mmHg MV Mean 1.1 mmHg MV Area cm COMMENTS: OP - HC Inspector Final Assembly Conveyor Line: 1 ZACHARIAH GALVA Cytometry Technologist: 1 Dr. Powell TAPE# PACS Pericardial Effusion N DATE OF SERVICE: 07/28/2019 FINDINGS: 1. Left ventricular chamber size is within normal limits. Left ventricular systolic function is normal. Overall ejection fraction estimated at 60%. 2. Left atrium, right atrium, and right ventricular chamber sizes are within normal limits. 3. Valvular structures have normal structure and motion. 4. Doppler interrogation reveals only trace tricuspid regurgitation, no other valvular insufficiency or stenosis. Pulmonary systolic pressure estimated at 29 ECHOCARDIOGRAM REPORT [id number] LEONA,BEATRIZ O mmHg. 5. No evidence of pericardial effusion or left ventricular thrombus. TRANSINT:[id number] Voice Confirmation ID: [id number] DOCUMENT ID: [id number] MARINE POWELL MD CC: [id number] DICTATION DATE: 07/28/191515 MICROARRAY SPECIALIST: 07/28/19 2254 [facility] [address] [id number]
== END | disposition home or self-care (01) ==
LOC: D.HCCECHO 10:44
PROVIDERS: ATTEND Internal Medicine Interventional Cardiology
DX: I25.10 Atherosclerotic heart disease of native coronary artery without angina pectoris (principal)

== ENCOUNTER → 2019-08-23 09:50 | Outpatient (CLI) | payer MEDICARE, BC ==
[2017-05-17 08:52] VITALS: BMI 28.4
--- NOTE | ~2019-08-23 | ST ---
PATIENT:BEATRIZ DELGADILLO MEDICAL RECORD: [id number] SEX: F LOCATION:[facility] ORDER #: ADMISSION DATE: 08/23/19 AGE OF PATIENT: 79 REFERRING PHYSICIAN: INTERPRETING PHYSICIAN: MARINE PITT MD DATE OF SERVICE: 08/23/2019 PROCEDURE: Nuclear stress test. INDICATION: Angina, coronary artery disease, shortness of breath, hypertension. She was exercised on standard Lexiscan protocol with 33 mCi of sestamibi injected at peak stress, 11 mCi were used previously for rest images. FINDINGS: Gated SPECT reveals an excellent ejection fraction at 66% with good wall motion thickening and brightness throughout the segments. SPECT IMAGING: Cardiolite was used for a myocardial perfusion agent. There is homogeneous uptake throughout all segments at rest and stress with no evidence of inducible ischemia or previous infarction. OVERALL IMPRESSION: This is a normal rest-stress Cardiolite with no evidence of inducible ischemia or previous infarction. A gated SPECT reveals preserved ejection fraction greater than 60%. At this time I would evaluate noncardiac etiology of chest pain. TRANSINT:[id number] Voice Confirmation ID: [id number] DOCUMENT ID: [id number] MARINE PITT MD CC: BRENDON PALACIOS [id number] DICTATION DATE: 08/25/19 0642 MODELING TEACHER: 08/26/19 0013 DEP CLI 08/23/19 [address] [address] [id number] [place] [address]
== END | disposition home or self-care (01) ==
LOC: D.HCCARDIO 09:50
PROVIDERS: ATTEND Internal Medicine Interventional Cardiology
DX: I25.10 Atherosclerotic heart disease of native coronary artery without angina pectoris (principal)

== ENCOUNTER → 2020-01-15 12:17 | Outpatient (CLI) | payer MEDICARE, BC ==
[2017-05-17 08:52] VITALS: BMI 28.4
== END | disposition home or self-care (01) ==
LOC: D.MRI 12:17
PROVIDERS: ATTEND Family Medicine
DX: M48.061 Spinal stenosis, lumbar region without neurogenic claudication (principal)

== ENCOUNTER → 2020-03-11 07:42 | Outpatient (CLI) | payer MEDICARE, BC ==
[2017-05-17 08:52] VITALS: BMI 28.4
== END | disposition home or self-care (01) ==
LOC: D.NM 07:42
PROVIDERS: ATTEND Internal Medicine Gastroenterology
DX: R14.0 Abdominal distension (gaseous) (principal); R11.0 Nausea

== ENCOUNTER → 2020-03-20 12:32 | Outpatient (CLI) | payer MEDICARE, BC ==
[2017-05-17 08:52] VITALS: BMI 28.4
== END | disposition home or self-care (01) ==
LOC: D.RAD 12:32
PROVIDERS: ATTEND Internal Medicine Gastroenterology
DX: K21.9 Gastro-esophageal reflux disease without esophagitis (principal); R13.12 Dysphagia, oropharyngeal phase; K22.70 Barrett's esophagus without dysplasia; K44.9 Diaphragmatic hernia without obstruction or gangrene

== ENCOUNTER 2020-09-04 05:43 | Day surgery (SDC) | payer MEDICARE, BC ==
[~2020-09-04] VITALS: Ht 170.2 cm; Wt 78.2 kg
[~2020-09-04 05:43] MED LIST changes: +AUGMENTIN 875-11 TAB PO
[2020-09-04 06:01] LABS: BASOPHILS 1.1 % (0-2); EOSINOPHILS 3.4 % (0-7); HEMATOCRIT 39.4 % (36.0-48.0); HEMOGLOBIN 12.5 g/dL (12-16); IMMATURE GRANULOCYTES 0.2 % (0-5); LYMPHOCYTE ABS# 1.61 10x3/uL (1.18-3.74); LYMPHOCYTES 24.7 % (15-50); MCHC 31.7 g/dL (31.0-37.0); MCV 91.4 fL (80.0-100.0); MEAN PLATELET VOLUME 9.4 fL (7.4-10.4); NEUTROPHIL ABS# 3.69 10x3/uL (1.56-6.13); NEUTROPHILS 56.6 % (40-80); PLATELET COUNT 212 10x3/uL (130-400); RBC 4.31 10x6/uL (4.00-5.40); RDW 13.3 % (11.5-14.5); WBC 6.5 10x3/uL (4.8-10.8)
[2020-09-04 06:15] LABS: ALBUMIN 3.9 g/dL (3.4-5.0); ANION GAP 11.1 mmol/L (8-16); BILIRUBIN - TOTAL 0.66 mg/dL (0.2-1.3); CALCIUM 9.1 mg/dL (8.5-10.1); CARBON DIOXIDE 27.9 mmol/L (21.0-32.0); CREATININE - SERUM 1.2 mg/dL (0.6-1.3); PROTEIN - SERUM 7.3 g/dL (6.4-8.2)
[2020-09-04 07:21] VITALS: BP 128/62; Ht 170.2 cm; Wt 78.2 kg
[2020-09-04] MEDS ORDERED: FERROUS SULFAT325 MG PO (07:27)
--- NOTE | 2020-09-04 13:07 | NUR ---
1230 IV REMOVED AND INSTRUCTIONS GIVEN.
== END 2020-09-04 12:50 | disposition home or self-care (01) ==
LOC: D.OPS 05:43
PROVIDERS: Anesthesiology; ATTEND Surgery
DX: K57.32 Diverticulitis of large intestine without perforation or abscess without bleeding (principal); K56.690 Other partial intestinal obstruction